=== PATIENT | male | born 1935 | race Caucasian/White ===

== ENCOUNTER → 2018-07-30 09:10 | Outpatient (CLI) | payer MEDICARE, OTHER ==
--- NOTE | ~2018-07-30 | EC ---
PATIENT:CAMERON JUNG DATE OF SERVICE: 07/30/18 SEX: M MEDICAL RECORD: [id number] DATE OF : 35 [facility] AGE OF PATIENT: 83 ADMISSION DATE: 07/30/18 REFERRING PHYSICIAN: INTERPRETING PHYSICIAN: AARON GARCIA MD ECHOCARDIOGRAM REPORT ECHO CHARGES 4 ECHO COMPLETE Date: 07/30/18 CLINICAL DIAGNOSIS: SYNCOPE ECHOCARDIOGRAPHIC MEASUREMENTS (adult normal given) AC root (d.<3.7cm) 3.4 cm LV Septum d (<1.2 cm> 1.0 cm Valve Excursion 1.5 cm LV Septum (systole) 1.2 cm Left Atria (s.<4.0cm> 4.9 cm LVPW d(<1.2cm) 1.3 cm RV (d.<2.3cm) 3.8 cm LVPW (sytole) 1.6 cm LV diastole(<5.6CM) 5.0 cm MV E-F(>70mm/sec) cm LV systole 3.6 cm LVOT Diameter 1.5 cm MV exc.(>10mm) 1.1 cm Est.ejection fraction (50-75%) % DOPPLER: LVIT cm/sec A 91.0 cm/sec E 80.0 cm/sec LA cm/sec RVSP 27 mmHg LVOT 104 cm/sec AOP1/2T m/s Asc. Ao 240 cm/sec RVOT 69 cm/sec RA cm/sec PA 127 cm/sec AV Gradient Peak 23.09mmHg AV Mean 12.89mmHg AV Area 1.0 cm MV Gradient Peak 3.20 mmHg MV Mean 1.29 mmHg MV Area cm COMMENTS: Windows Software Developer: Jennifer ORLANDO Executive Officer: 3 Dr. Casillas TAPE# PACS Pericardial Effusion N DATE OF SERVICE: 07/30/2018 Adequate 2-D echo, color-flow and spectral Doppler, and M-mode. No LVH. LV internal dimensions are normal. Wall motion is normal. EF is greater than or equal to 55%. Aortic valve is calcified with minimal restriction of leaflet motion and peak gradient of 23 mmHg, putting this in very mild range. Left atrium is dilated at 4.9 cm. Mitral valve shows no prolapse. Mild MR. Right-sided chambers are grossly normal. Trace TR. ECHOCARDIOGRAM REPORT [id number] CAMERON JUNG GENE TRANSINT:[id number] Voice Confirmation ID: [id number] DOCUMENT ID: [id number] AARON GARCIA MD CC: [id number] DICTATION DATE: 07/30/18 1546 SENIOR TECHNICAL ANALYST: 07/30/18 1752 REG [facility] [address] [id number]
--- NOTE | 2018-08-02 16:42 | ST ---
PATIENT:CAMERON JUNG MEDICAL RECORD: [id number] SEX: M LOCATION:[facility] ORDER #: ADMISSION DATE: 07/30/18 AGE OF PATIENT: 83 REFERRING PHYSICIAN: INTERPRETING PHYSICIAN: JUDITH REYNOLDS MD DATE OF SERVICE: 07/30/2018 Nuclear Stress Test INDICATIONS: Angina, hypertension, shortness of breath, dyspnea on exertion. He was exercised on standard Lexiscan protocol with 28 mCi of sestamibi injected at peak stress and 9 mCi was used previously for rest images. FINDINGS: Gated SPECT reveals preserved ejection fraction at 65% with good wall motioning and thickening and brightening throughout all segments. SPECT IMAGING: Cardiolite was used as myocardial perfusion agent. There are definite reversible changes inferiorly. This includes the basal, mid, apical, and inferior segments. The degree of reversibility is mild. The amount of myocardium involved is mild to moderate. OVERALL IMPRESSION: This is an abnormal nuclear stress test, reversibility inferiorly suggestive of hemodynamically significant coronary artery disease, depending upon symptomatology would proceed with coronary angiography as followup study. TRANSINT:[id number] Voice Confirmation ID: [id number] DOCUMENT ID: [id number] JUDITH REYNOLDS MD at 1642 CC: KELLEN EDWARD [id number] DICTATION DATE: 07/31/18 1534 CORPORATE LIBRARIAN: 08/01/18 0416 DEP CLI 07/30/18 [id number] [place] [address]
== END | disposition home or self-care (01) ==
LOC: D.HCCARDIO 09:10
PROVIDERS: ATTEND Internal Medicine Interventional Cardiology
DX: I20.9 Angina pectoris, unspecified (principal); R55 Syncope and collapse

== ENCOUNTER 2018-08-06 07:19 | Outpatient (CLI) | payer MEDICARE, OTHER ==
[~2018-08-06] VITALS: Ht 180.3 cm; Wt 118.2 kg
--- NOTE | ~2018-08-06 | HEMODYNAMI ---
PATIENT:CAMERON JUNG MEDICAL RECORD: [id number] : 35 LOCATION:[facility] ADMISSION DATE: 08/06/18 Generatedon:08/06/20189:34 Patient name: CAMERON JUNG Patient #: [id number] SSN: D OB: 1935 Date of study: 08/06/2018 Page: Of Hemodynamic Procedure Report Patient Data Patient Demographics Procedure consent was obtained First Name: CAMERON Gender: Male Last Name: ERICH : 1935 [facility] Initial: CATARINO Age: 83 year(s) Patient #: [id number] Race: Unknown Additional ID: [id number] Contact details [address]: [address] [place] [address] State: [place] City: [place] Zip code: [address] Admission Admission Data Admission Date: 08/06/2018 Admission Time: 7:19 Weight (lbs.): 261 Weight (kg.): 118.39 Procedure Procedure Types Cath Procedure Diagnostic Procedure [facility] w/Coronaries PCI Procedure Coronary Stent Coronary Stent Initial Procedure Description Procedure Date Procedure Date: 08/06/2018 Procedure Start Time: 9:08 Procedure End Time: 9:31 Procedure Staff Name Function Jeferson Rivera MD Performing Physician Joel Cook RT Monitor Mary Medel RT Scrub Gwyn Woodall RN Nurse Procedure Data Cath Procedure Fluoroscopy Diagnostic fluoroscopy Total fluoroscopy Time: 5.1 time: 5.1 min min Diagnostic fluoroscopy Total fluoroscopy dose: dose: 1047 mGy 1047 mGy Contrast Material Contrast Material Type Amount (ml) Isovue 300 12 Entry Location Entry Primary Successful Side Size Upsize Upsize Entry Closure Lucia ccessful Closure Location (Fr) 1 (Fr) 2 (Fr) Remarks Device Remarks Radial Right 6 Fr Mechanical artery Short Compression Estimated blood loss: 10 ml Diagnostic catheters Device Type Used For End Catheter Placement DIAGNOSTIC [place] 110cm 5 Procedure Fr catheter (108126) Procedure Complications No complications Procedure Medications Medication Administration Route Dosage Oxygen etCO2 Nasal cannula 2 l/min Lidocaine 2% added to field 20 Heparin Flush Bag added to field 2 bags (1000units/500ml NS) 0.9% NaCl I.V. 100 ml/hr Versed I.V. 1 mg Fentanyl I.V. 50 mcg Radial Cocktail I.A. 1 syringe (Verapamil 2mg/Nitro 400mcg/Heparin 1500units) Heparin Bolus I.V. 4000 units Integrilin (Bolus I.V. 10.7 ml 2mg/ml) Plavix P.O. 600 mg Hemodynamics Rest Heart Rate: 11 (bpm) Pressure Samples Time Site Value (mmHg) Purpose Heart Use Rate(bpm) 9:11 AO 82/53(68) Snapshot 68 9:18 LV 128/5,10 Snapshot 70 9:18 AO 111/57(78) Pullback 73 9:18 LV 131/6,8 Pullback 73 9:25 AO 101/65(83) Snapshot 64 Gradients Valve Time Site 1 Site 2 Mean SEP/DFP Peak To Heart Use (mmHg) (sec/min) Peak Rate (mmHg) (bpm) Aortic 9:18 LV AO 13 20 20 73 131/6,8 111/57(78) Calculations Valve P-P Mean Valve Index Valve Source Name Gradient Area Flow (cm2) Aortic 20 13 20 13 Snapshots Pre Cath Intra NCS Post Cath Vital Signs Time Heart Resp SPO2 etCO2 NIBP (mmHg) Rhythm Pain Sedation Rate (ipm) (%) (mmHg) Status Level (bpm) 8:56:32 65 12 94 0 126/72(104) NSR 0 (11) 10(A) , No pain 9:00:40 60 16 94 21 121/70(102) NSR 0 (11) 10(A) , No pain 9:04:43 58 15 95 28.5 134/76(104) NSR 0 (11) 10(A) , No pain 9:08:53 59 14 94 29.2 126/72(93) NSR 0 (11) 9(A) , No pain 9:13:05 71 14 89 31.5 95/59(71) NSR 0 (11) 9(A) , No pain 9:17:05 66 13 96 30 110/65(83) NSR 0 (11) 9(A) , No pain 9:21:06 66 13 97 30 121/70(96) NSR 0 (11) 9(A) , No pain 9:25:14 63 14 98 31.5 115/64(85) NSR 0 (11) 9(A) , No pain 9:29:22 64 14 98 30 120/61(96) NSR 0 (11) 10(A) , No pain Medications Time Medication Route Dose Verified Delivered Reason Note s Effectiveness by by 9:02:14 Oxygen etCO2 2 l/min Jeferson Pascal used for Nasal St All Woodall RN procedure cannula 9:02:21 Lidocaine 2% added 20ml Jeferson Govea for local to vial [facility] anesthetic field MD HASSAN 9:02:28 Heparin Flush added 2 bags Jeferson Govea used for Bag to [facility] procedure (1000units/500ml field MD HASSAN NS) 9:02:37 0.9% NaCl I.V. 100 Jeferson Pascal Per physician ml/hr St All Woodall RN, MD 9:06:39 Versed I.V. 1 mg Jeferson Pascal for sedation St All Woodall RN, MD 9:06:45 Fentanyl I.V. 50 mcg Jeferson Pascal for sedation St All Woodall RN, MD 9:09:09 Radial Cocktail I.A. 1 Jeferson Govea for (Verapamil syringe [facility] John vasodilation 2mg/Nitro MD HASSAN 400mcg/Heparin 1500units) 9:20:45 Heparin Bolus I.V. 4000 Jeferson Pascal for veri fied units St All Woodall RN anticoagulation with dr MD reaves 9:24:01 Integrilin I.V. 10.7 ml Jeferson Pascal for wast ed (Bolus 2mg/ml) St All Woodall RN anticoagulation 9.3 ml of vial 9:31:41 Plavix P.O. 600 [address] for St All Woodall RN antiplatelet therapy Procedure Log Time Note 8:30:49 Joel Cook RT(R) sent for patient. Start room use. 8:51:58 Time tracking: Regular hours (M-F 7:00 - 5:00) 8:52:02 Plan of Care:Hemodynamics will remain stable., Cardiac rhythm will remain stable., Comfort level will be maintained., Respiratory function will remain adequate., Patient/ family verbilizes understanding of procedure., Procedure tolerated without complication., Recovers from procedure without complications.. 8:52:07 Patient received from Pre/Post Procedure Room to CCL 2 Alert and oriented. Tansferred to table in Supine position. 8:52:10 Warm blankets applied, and isabella hugger turned on for patient comfort. 8:52:11 Correct patient and procedure confirmed by team. 8:52:13 Signed procedure consent form obtained from patient. 8:52:17 ECG and BP/O2 sat monitors applied to patient. 8:52:26 Full Disclosure recording started 8:52:37 H&P Date Dictated: 08/06/2018 Within 30 days and on chart., H&P Addendum completed by physician on day of procedure. (MUST COMPLETE FOR ALL OUTPATIENTS). 8:52:39 Pre-procedure instructions explained to patient. 8:52:39 Pre-op teaching completed and patient verbalized understanding. 8:52:43 Family in waiting room. 8:52:44 Patient NPO since Midnight. 8:52:46 Is the patient allergic to Iodine/contrast media? No. 8:52:47 Was the patient premedicated? No 8:52:48 Is patient on blood thinner?No 8:52:51 Patient diabetic? No. 8:52:53 Previous problem with sedation/anesthesia? No ? 8:52:54 Snore? Yes 8:52:56 Sleep apnea? No 8:52:56 Deviated septum? No 8:52:57 Opens mouth fully? Yes 8:52:58 Sticks out tongue? Yes 8:53:00 Airway obstruction? No ? 8:53:02 Dentures? No ? 8:53:07 Pre procedure: right dorsailis pedis pulse 2+ Normal; easily identifiable; not easily obliterated 8:53:09 Pre procedure: left dorsailis pedis pulse 2+ Normal; easily identifiable; not easily obliterated 8:53:11 Patient pain scale 0/10 ?. 8:53:21 IV patent on arrival in left forearm with 0.9% NaCl at KVO. 8:53:23 Lab results completed and on chart. 8:53:26 Right Radial & Right Groin area was prepped with chlora-prep and draped in sterile fashion 8:53:27 Alarms reviewed by R. N. 8:53:27 Sharps counted by scrub and verified by R.N. 8:55:26 Vital chart was started 8:55:33 Baseline sample Acquired. 8:55:38 Rhythm: sinus rhythm 9:01:02 Baseline sample Acquired. 9:01:20 Use device set Radial Dx or PCI 9:01:22 Tegaderm 4 x 4 (1626W) opened to sterile field. 9:01:23 ACIST Manifold (30474) opened to sterile field. 9:01:24 ACIST Hand Control (91067) opened to sterile field. 9:01:25 ACIST Syringe (59487) opened to sterile field. 9:01:26 Medline Cath Pack ([id number]) opened to sterile field. 9:01:26 Bag Decanter (2002S) opened to sterile field. 9:01:26 DIAGNOSTIC WIRE .035 260cm J wire (772511) opened to sterile field. 9:01:27 MBrace Wrist Support ([id number]) opened to sterile field. 9:01:29 SHEATH 6FR Slender (60-8787) opened to sterile field. 9:02:14 Oxygen 2 l/min etCO2 Nasal cannula was administered by Gwyn Woodall RN; used for procedure; 9:02:21 Lidocaine 2% 20ml vial added to field was administered by Jeferson Rivera MD; for local anesthetic; 9:02:28 Heparin Flush Bag (1000units/500ml NS) 2 bags added to field was administered by Jeferson Rivera MD; used for procedure; 9:02:37 0.9% NaCl 100 ml/hr I.V. was administered by Gwyn Woodall RN; Per physician; 9:05:35 --------ALL STOP TIME OUT------ 9:05:35 Final Timeout: patient, procedure, and site verified with staff and physician. All members of the team are in agreement. 9:05:38 Right Radial & Right Groin site verified by team. 9:05:42 Maximum allowable Isovue 300 dose 300ml. Physician notified. (300ml for normal creatinines. For patients with creatinine of 1.7 or higher multiply weight(kg) x 5 divided by creatinine.) 9:05:46 Fire Safety Assessment: A--An alcohol-based skin anteseptic being used preoperatively., C--Open oxygen or nitrous oxide is being used., D--An ESU, laser, or fiber-optic light is being used. 9:05:49 Physical assessment completed. ASA score P 2 - A patient with mild systemic disease as per Jeferson Rivera MD. 9:05:51 Sedation plan: IV Moderate Sedation Medication:Versed, Fentanyl 9:06:39 Versed 1 mg I.V. was administered by Gwyn Woodall RN; for sedation; 9:06:45 Fentanyl 50 mcg I.V. was administered by Gwyn Woodall RN; for sedation; 9:06:47 Zero performed for pressure channel P1 9:08:16 Procedure started. 9:08:22 Local anesthetic to right radial artery with Lidocaine 2% by Jeferson Rivera MD.INITIAL ACCESS ONLY 9:09:09 Radial Cocktail (Verapamil 2mg/Nitro 400mcg/Heparin 1500units) 1 syringe I.A. was administered by Jeferson Rivera MD; for vasodilation; 9:09:14 A 6 Fr Short sheath was inserted into the Right Radial artery 9:10:04 A DIAGNOSTIC [place] 110cm 5 Fr catheter ([id number]) was advanced over the wire and used for Procedure. 9:11:27 RCA angiography performed. 9:12:08 LCA angiography performed. 9:13:59 Catheter exchanged over wire. 9:14:09 GUIDE 6FR EBU 3.5 catheter ([id number]) opened to sterile field. 9:14:57 6 Fr EBU 3.5 guide catheter was inserted over the wire 9:17:53 LCA angiography performed. 9:18:45 LV angiography performed. 9:18:51 LV gram done using SALCIDO 9:18:59 EF : 55 % 9:20:45 Heparin Bolus 4000 units I.V. was administered by Gwyn Woodall RN; for anticoagulation; verified with dr reaves 9:21:12 LV hemodynamics recorded. 9:21:21 Injector settings: Ml/sec: 5, Volume: 15, 9:21:28 Use device set HOLLY PCI 9:21:33 INFLATOR Merit BasixCompak (SA7276) opened to sterile field. 9:23:03 Patient Weight : 261 lbs 9:23:20 BMW 300cm Mead 2 J wire ([id number]) opened to sterile field. 9:23:31 BMW wire advanced. 9:24:01 Integrilin (Bolus 2mg/ml) 10.7 ml I.V. was administered by Buffie Woodall RN; for anticoagulation; wasted 9.3 ml of vial 9:24:18 Wire advanced across lesion. 9:25:40 Place stent Inflation Number: 1 A TIFFANY OTW 3.0 x 12 stent ([id number]) was prepped and advanced across the Mid LAD. The stent was deployed at 10 ELIZABETH for 0:30 (min:sec). 9:26:16 Inflation number: 2 The stent balloon was then re-inflated across the Mid LAD to 10 ELIZABETH for 0:30 (min:sec). 9:26:49 Inflation number: 3 The stent balloon was then re-inflated across the Mid LAD to 10 ELIZABETH for 0:30 (min:sec). 9:28:35 Stent catheter was removed intact over wire. 9:28:36 Wire removed. 9:28:37 Guide catheter removed. 9:28:56 TR BAND Standard ([id number]) opened to sterile field. 9:29:07 Sheath removed intact; hemostasis achieved with Mechanical Compression to the Right Radial artery. 9:29:10 Procedure ended.(Physican Out) 9:29:28 Fluoroscopy time 05.10 minutes. 9:29:37 Fluoroscopy dose: 1047 mGy 9:29:37 Flurop Dose total: 1047 9:29:42 Contrast amount:Isovue 300 12ml. 9:29:43 Sharps counted by scrub and verified by R.N. 9:29:46 TR band inflated with 116cc of air. 9:29:47 Insertion/operative site no bleeding no hematoma. 9:29:50 Post Procedure Pulses reassessed and unchanged 9:29:53 Post-procedure physical assessment completed. ASA score P 2 - A patient with mild systemic disease as per Jeferson Rivera MD. 9:29:56 Post procedure rhythm: unchanged. 9:29:59 Estimated blood loss: 10 ml 9:30:00 Post procedure instruction explained to patient.Patient verbalizes understanding. 9:30:00 Patient needs reinforcement of post procedure teaching. 9:30:09 Procedure type changed to Cath procedure, Diagnostic procedure, LHC, LHC w/Coronaries, PCI procedure, Coronary Stent, Coronary Stent Initial 9:30:13 Procedure Complication : No complications 9:30:16 Procedure and supply charges have been captured, reviewed, submitted and are correct. 9:31:29 Vital chart was stopped 9:31:30 See physician's report for complete and final results. 9:31:31 Report given to Pre/Post Procedure Room. 9:31:34 Patient transfered to Pre/Post Procedure Room with Stretcher. 9:31:36 Procedure ended. 9:31:36 Full Disclosure recording stopped 9:31:41 Plavix 600 mg P.O. was administered by Gwyn Woodall RN; for antiplatelet therapy; 9:33:59 End room use (Document Last) Intervention Summary Intervention Notes Time ActionType Lesion and Equipment Action# Pressure Duration Attributes Used 9:25:40 Place stent Mid LAD TIFFANY OTW 3.0 1 10 00:30 x 12 stent ([id number]) 9:26:16 Reinflate Mid LAD TIFFANY OTW 3.0 2 10 00:30 stent x 12 stent balloon ([id number]) 9:26:49 Reinflate Mid LAD TIFFANY OTW 3.0 3 10 00:30 stent x 12 stent balloon ([id number]) Device Usage Item Name Manufacture Quantity Catalog Hospital Part Current [facility] Lot# / Number Charge Number Stock Stock Serial# Code Tegaderm 4 x 3M 1 1626W 504292 464180 392130 5 4 (1626W) ACIST Acist 1 35211 595748 440826 012009 5 Manifold Medical (49289) Systems Inc ACIST Hand Acist 1 83316 740398 222831 511398 5 Control Medical (13723) Systems Inc ACIST Syringe Acist 1 72406 616423 448188 411751 20 (26480) Medical Systems Inc Medline Cath Medline 1 [id number] 220595 11560 447734 5 Pack ([id number]) Bag Decanter Microtek 1 2001S 750056 11231 288453 5 (2001S) Medical Inc. DIAGNOSTIC [facility] [place] 1 483864 599066 158258 121503 30 WIRE .035 260cm J wire (116625) MBrace Wrist Advanced 1 140-0250-00 397316 66814 877507 5 Support Vascular ([id number]) Dynamics SHEATH 6FR Terumo 1 [id number] 303474 309921 879096 5 Slender (80-1060) DIAGNOSTIC Terumo 1 40-6006 780043 917206 941979 5 [place] 110cm 5 Fr catheter (524527) GUIDE 6FR EBU Medtronic 1 [id number] 155604 91694 289045 3 3.5 catheter (ET0YJN10) INFLATOR [facility] 1 HJ3627 434210 139004 827950 15 [facility] Medical BasixCompak (FM0540) BMW 300cm Mcdonald 1 [id number] 112119 658296 030636 5 Mead 2 J Vascular wire (9348901Z) TIFFANY OTW 3.0 Medtronic 1 [id number] 594115 4287561 754305 5 [id number] x 12 stent ([id number]) TR BAND Terumo 1 [id number] 920662 141078 920910 40 Standard ([id number]) Signature Audit [place] Stage Time Signature Unsigned Intra-Procedure 08/06/2018 Joel Cook 9:34:21 AM RT(R) Signatures Monitor : Joel Cook RT Signature : Date : Time : [id number] [place] [address]
[2018-08-06] MEDS ORDERED: PRAVACHOL40 MG PO (07:34)
[2018-08-06] MEDS ORDERED: ASPIRIN81 MG PO (07:35)
[2018-08-06] MEDS ORDERED: CARDURA8 MG PO (07:35)
[2018-08-06] MEDS ORDERED: PROSCAR5 MG PO (07:35)
[2018-08-06 07:53] VITALS: BP 132/61; Ht 180.3 cm; Wt 118.2 kg
[2018-08-06 08:03] LABS: BASOPHILS 0.6 % (0-2); EOSINOPHILS 3.5 % (0-7); HEMATOCRIT 40.1 % (42.0-54.0); IMMATURE GRANULOCYTES 0.2 % (0-5); LYMPHOCYTES 34.2 % (15-50); MCH 32.2 pg (26.0-34.0); MCHC 34.9 g/dL (31.0-37.0); MCV 92.2 fL (80.0-100.0); MONOCYTES 14.9 % (2-11); NEUTROPHILS 46.6 % (40-80); PLATELET COUNT 154 10x3/uL (130-400); RBC 4.35 10x6/uL (4.20-6.10); RDW 12.9 % (11.5-14.5); WBC 4.6 10x3/uL (4.8-10.8)
[2018-08-06 08:12] LABS: ANION GAP 16.4 mmol/L (8-16); CALCIUM 8.9 mg/dL (8.5-10.1); CARBON DIOXIDE 21.6 mmol/L (21.0-32.0); CREATININE - SERUM 1.4 mg/dL (0.6-1.3)
--- NOTE | 2018-08-06 09:45 | NUR ---
RECIEVED TO ROOM VIA STRETCHER FROM QUALITY MANAGEMENT COORDINATOR WITH TR BAND TO R/WRIST CDI NO BLEEDING OR HEMATOMA NOTED. HR 62 BP 118/54 CHEST PAIN IS DENIED. INSTRUCTED PATIENT TO KEEP RUE STRAIGHT NO BENDING OR FLEXING OF WRIST
[2018-08-06] MEDS ORDERED: PLAVIX75 MG PO (09:46)
--- NOTE | 2018-08-06 10:00 | NUR ---
TR BAND TO R/WRIST IS CDI NO BLEEDING NOTED. CHEST PAIN IS DENIED
--- NOTE | 2018-08-06 10:18 | NUR ---
SANDWICH AND SODA TO BEDSIDE TR BAND REMAINS CDI WITH VSS
--- NOTE | 2018-08-06 10:43 | NUR ---
PATIENT RESTING QUIETLY WITH EYES CLOSED HR 58 BP 113/57 TR BAND TO R/WRIST IS CDI NO BLEEDING NOTED
--- NOTE | 2018-08-06 11:15 | NUR ---
SANDWICH AND SODA TO BEDSIDE NAUSEA IS DENIED. TR BAND REMAINS CDI WITH NO BLEEDING
--- NOTE | 2018-08-06 12:01 | NUR ---
REPOSITIONED TO HOB UP 30 FOR COMFORT. TR BAND IS CDI WITH NO BLEEDING NOTED. TOLERATING SANDWICH AND SODA WITH NAUSEA DENIED
--- NOTE | 2018-08-06 12:26 | OP ---
PATIENT NAME: CAMERON JUNG MEDICAL RECORD: [id number] :35 LOCATION:[facility] ADMISSION DATE: SURGEON: AARON GARCIA MD DATE OF OPERATION: 08/06/2018 PROCEDURE: Left heart catheterization, selective coronary angiography, right radial approach. CATHETERS: A 5-Sinhala sheath, 5/4 left and right Wilton, 5/4 pig. The procedure was well tolerated. The patient was returned to larios. Sheath was removed. TR band was placed. FINDINGS: Left ventriculography in 30-degree SALCIDO view: Normal wall motion and normal systolic function. CORONARY ANATOMY: LEFT MAIN: Left main is free of disease. LAD: LAD has a tight stenosis just after the takeoff of the first diagonal with a second 80% stenosis in its mid portion. CIRCUMFLEX: Moderate sized circumflex, free of disease. RIGHT CORONARY ARTERY: Dominant artery, large vessel, free of disease. IMPRESSION: PLAN intervention to the LAD momentarily. DESCRIPTION OF PROCEDURE: Using a radial sheath, an EBU 3.5 guiding catheter provided excellent guide catheter support followed by a 300 cm Whisper wire, which was placed across the tightly occluded LAD down this portion of vessel. Stent deployed was a 3.0 x 12 mm to cover the distal 80% stenosis. Then, using the stent balloon for PTCA, we angioplastied only the proximal portion of the LAD at 80% stenosis, no residual. This stent was not deployed to avoid jailing the large diagonal itself. IMPRESSION: Successful PTCA and stenting of the LAD. Plavix was loaded in the lab. Heparin and Integrilin was used during the case. TR band placed. TRANSINT:[id number] Voice Confirmation ID: [id number] DOCUMENT ID: [id number] AARON GARCIA MD at 1226 CC: [id number] DICTATION DATE: 08/06/18 0938 INVESTOR RELATIONS DIRECTOR: 08/06/18 1104 REG [facility] [address] [id number]
--- NOTE | 2018-08-06 12:37 | NUR ---
2 CC AIR REMOVED FROM TR BAND WITH NO BLEEDING OR HEMATOMA. PATIENT DENIED CHEST PAIN VSS
--- NOTE | 2018-08-06 13:00 | NUR ---
2 CC AIR REMOVED FROM TR BAND WITH NO BLEEDING NOTED 1315 2 CC AIR REMOVED FROM TR BAND WITH NO BLEEDING NOTED
--- NOTE | 2018-08-06 13:29 | NUR ---
PIV REMOVED WITH DRESSING APPLIED. 2 CC AIR REMOVED FROM TR BAND WITH NO BLEEDING. PATIENT UP TO BEDSIDE TO GET DRESSED FOR DISCHARGE HOME
--- NOTE | 2018-08-06 14:05 | NUR ---
VERBAL AND WRITTEN DISCHARGE GONE OVER WITH PATIENT AND . TR BAND REMOVED WITH NO BLEEDING NOTED. PATIENT LEFT VIA WC TO PARKING FOR TRANSPORT HOME NO DISTRESS.
== END 2018-08-06 14:07 | disposition home or self-care (01) ==
LOC: D.CATH 07:19
PROVIDERS: ATTEND Internal Medicine Interventional Cardiology
DX: I25.119 Atherosclerotic heart disease of native coronary artery with unspecified angina pectoris (principal); Z01.812 Encounter for preprocedural laboratory examination
CPT/HCPCS: 93458; C9600